=== PATIENT | female | born 1940 | race Caucasian/White ===

== ENCOUNTER → 2024-08-10 | Outpatient (REF) | payer MEDICARE ==
[~2024-08-10] MED LIST: IOPAMIDOL 370 MG/ML 100 ML INFUS..BTL INJ ONE; SODIUM CHLORIDE 0.9% 100 ML ONE
[2024-08-10 13:18] LABS: CREATININE, SERUM 0.65 mg/dL (0.57-1.11)
== END ==
LOC: CT 05:00
PROVIDERS: ATTEND Internal Medicine
DX: I71.21 Aneurysm of the ascending aorta, without rupture (principal)
CPT/HCPCS: 36415; 71275; 82565; 84520; J7050; Q9967